=== PATIENT | male | born 1970 | race Caucasian/White ===

== ENCOUNTER 2024-11-08 18:55 | Emergency (ER) | payer OTHER ==
[~2024-11-08] VITALS: Ht 182.9 cm; Wt 75.0 kg
[2024-11-08 18:57] VITALS: BP 129/80; PULSE 90; RESP 14; TEMP 98; O2SAT 99
== END 2024-11-09 02:05 | disposition left against medical advice (07) ==
LOC: ER 18:55
DX: R51.9 Headache, unspecified (principal); Z53.21 Procedure and treatment not carried out due to patient leaving prior to being seen by health care provider